=== PATIENT | female | born 1970 ===

== ENCOUNTER 2018-11-06 20:12 | Emergency (ER) | payer OTHER ==
[~2018-11-06 20:12] MED LIST: CETI10CA8 PO; HYDR-385 PO; IBUP800T37 PO; PER PO; TYLENOL PM PO
[2018-11-06] MEDS ORDERED: ESCI20TA38 PO (20:20)
--- NOTE | 2018-11-06 20:39 | ER Report ---
History and Physical Time Seen By MD: 20:37 Hx. of Stated Complaint: patient states that she has a "knot" starting from her sternum going along down her right breast; states that she has had the knot fot 6yr and off and on it bothers her and tonight it has been hurting her HPI/ROS CHIEF COMPLAINT: Pain in right chest area HISTORY OF PRESENT ILLNESS: This is a 47 year old female. She has pain in the right chest area, along the bottom of the ribs, extending to under the right breast and to her side. Has had on and off for years now. Has not seen a certain pattern to the pain. Has been evaluated in the past, told it was costochondritis. Has had breast implants in the past. Has no breast pain, skin changes or nipple discharge. No lymph nodes on the right side, but has a small area behind the left ear that feels like a lymph node. No fevers or chills. No shortness of breath.. Pain increases with movement and plapation of the chest wall. No shortness of breath, but the sharp pain sometimes takes her breath eliseo y. REVIEW OF SYSTEMS: Constitutional: No fever or chills. Eyes: No vision changes. ENT: Has had recent congestion, sore throat, runny nose. Cardiovascular: No heart palpitations. Respiratory: Mild cough. Gastrointestinal: No abdominal pain. No nausea or vomiting. Genitourinary: No dysuria or urinary probllems. Musculoskeletal: No other musculoskeletal pain other than some episodic shoulder pains. Skin: No rashes. Neurological: No numbness. Allergies: Coded Allergies: phenylpropanolamine (Verified Allergy, Intermediate, sunburn, 11/06/18) cefaclor (Verified Allergy, Mild, RASH, 11/06/18) Home Meds Active Scripts Hydrocodone Bit/Acetaminophen (HYDROCODON-ACETAMINOPHEN 5-325) 1 Each Tablet, 1 EACH PO Q4H PRN for PAIN, #8 TAB 0 Refills Prov:MOOK NOE MD 11/06/18 Prednisone (PREDNISONE) 20 Mg Tablet, 60 MG PO QDAY, #12 TAB 0 Refills Prov:MOOK NOE MD 11/06/18 Ibuprofen (IBUPROFEN) 800 Mg Tablet, 800 MG PO Q8H PRN for PAIN, #30 TAB 0 Refills Prov:ABIGAIL SANDOVAL MD 07/04/17 Reported Medications Escitalopram Oxalate (LEXAPRO) 20 Mg Tablet, 10 MG PO QDAY, TAB 11/06/18 [Tylenol Pm] No Conflict Check, 500 TAB PO HS, MG 06/28/17 Discontinued Reported Medications Hydrocodone Bit/Acetaminophen (HYDROCODON-ACETAMINOPHEN 5-325) 1 Each Tablet, 1 EACH PO Q4H PRN for PAIN, TAB 06/28/17 Cetirizine Hcl (ZYRTEC) 10 Mg Capsule, 10 MG PO PRN, CAPSULE 06/28/17 Discontinued Scripts Oxycodone/Acetaminophen (OXYCODONE/ACETAMINOPHEN 5MG/325 MG) 5 Mg/325 Mg Tab, 1- 2 TAB PO Q4H PRN for PAIN, #20 TAB 0 Refills Prov:ABIGAIL SANDOVAL MD 07/04/17 Reviewed Nurses Notes: Yes Hx Smoking: Yes (5 CIGARETTES A DAY 30+YEARS ) Smoking Status: Current: Every Day Smoker Hx Substance Use Disorder: No Constitutional Vital Sign - Last 24 Hours 11/06/18 11/06/18 11/06/18 11/06/18 20:17 20:27 20:30 20:42 Temp 98.9 Pulse 129 111 98 Resp 19 B/P (MAP) 143/109 132/91 (105) Pulse Ox 94 93 94 O2 Delivery Room Air 11/06/18 11/06/18 11/06/18 11/06/18 20:57 21:00 21:12 21:27 Pulse 93 87 87 B/P (MAP) 138/113 (121) Pulse Ox 93 95 95 11/06/18 11/06/18 11/06/18 11/06/18 21:30 21:42 21:57 22:16 Pulse 77 78 B/P (MAP) 137/96 (110) ???/??? (7582) Pulse Ox 94 93 11/06/18 11/06/18 11/06/18 11/06/18 22:17 22:30 22:32 22:47 Pulse 82 77 79 B/P (MAP) ???/??? (1983) Pulse Ox 96 95 93 11/06/18 11/06/18 11/06/18 23:00 23:02 23:17 Pulse 87 85 B/P (MAP) ???/??? (1665) Pulse Ox 95 93 Physical Exam General Appearance: The patient is alert. No acute distress. Eyes: Pupils are equal, round. No pallor, injection or icterus. ENT: Mucous membranes are moist. Normal oral mucosa. Posterior oropharynx is normal. Neck: Supple and non tender. Respiratory: Lungs are clear to auscultation. Cardiovascular: Regular rate and rhythm. No murmurs, gallops or rubs. Normal capillary refill. Gastrointestinal: Abdomen is soft and non tender. Nondistended. Normal active bowel sounds. Neurological: Alert and oriented x3. No focal neurologic deficits Skin: Warm and dry. No rashes. Breasts: Right breast is symmetric, no masses felt. No nipple discharge or changes. Lymph: Axillary lymph node evaluation without any lymphadenopathy present Musculoskeletal: Pain with palpation of the ribs, has a little prominence of the area. Full range of motion. No tenderness in palpation of the cervical, thoracic and lumbar spine. DIFFERENTIAL DIAGNOSIS: After history and physical exam, differential diagnosis was considered for right-sided rib pain, likely costochondritis, but will need to lock and rule out any other breast issues, infectious etiology, masses. Medical Decision Making Data Points Result Diagram: 11/06/18214611/06/182146 Laboratory Hematology Test 11/06/18 21:47 Red Blood Count 5.05 M/uL (4.17-5.56) Mean Corpuscular Volume 77.8 fL (80.0-96.0) Mean Corpuscular Hemoglobin 25.5 pg (26.0-33.0) Mean Corpuscular Hemoglobin Concent 32.8 g/dL (32.0-36.0) Red Cell Distribution Width 18.1 % (11.5-14.5) Mean Platelet Volume 7.6 fL (7.2-11.1) Neutrophils (%) (Auto) 58.0 % (39.4-72.5) Lymphocytes (%) (Auto) 28.9 % (17.6-49.6) Monocytes (%) (Auto) 6.8 % (4.1-12.4) Eosinophils (%) (Auto) 5.1 % (0.4-6.7) Basophils (%) (Auto) 1.2 % (0.3-1.4) Nucleated RBC Relative Count (auto) 0.1 /100WBC Neutrophils # (Auto) 5.9 K/uL (2.0-7.4) Lymphocytes # (Auto) 2.9 K/uL (1.3-3.6) Monocytes # (Auto) 0.7 K/uL (0.3-1.0) Eosinophils # (Auto) 0.5 K/uL (0.0-0.5) Basophils # (Auto) 0.1 K/uL (0.0-0.1) Nucleated RBC Absolute Count (auto) 0.01 K/uL Peripheral Blood Smear Yes Y/N Erythrocyte Sedimentation Rate 7 mm/HOUR (0-20) Sodium Level 140 mmol/L (137-145) Potassium Level 4.2 mmol/L (3.5-5.0) Chloride Level 114 mmol/L (98-107) Carbon Dioxide Level 21 mmol/L (22-31) Blood Urea Nitrogen 12 mg/dl (7-18) Creatinine 0.80 mg/dl (0.52-1.04) Glomerular Filtration Rate Calc > 60.0 Random Glucose 93 mg/dl (75-110) Calcium Level 9.0 mg/dl (8.4-10.2) Total Bilirubin 0.2 mg/dl (0.2-1.3) Aspartate Amino Transf (AST/SGOT) 16 U/L (0-35) Alanine Aminotransferase (ALT/SGPT) 23 U/L (0-56) Alkaline Phosphatase 61 U/L (0-126) C-Reactive Protein 0.5 mg/dl (<1.0) Total Protein 7.2 g/dl (6.3-8.2) Albumin 4.3 g/dl (3.5-5.0) Chemistry Test 11/06/18 21:47 White Blood Count 10.1 k/uL (4.5-11.0) Red Blood Count 5.05 M/uL (4.17-5.56) Hemoglobin 12.9 g/dL (12.0-16.0) Hematocrit 39.3 % (34.0-47.0) Mean Corpuscular Volume 77.8 fL (80.0-96.0) Mean Corpuscular Hemoglobin 25.5 pg (26.0-33.0) Mean Corpuscular Hemoglobin Concent 32.8 g/dL (32.0-36.0) Red Cell Distribution Width 18.1 % (11.5-14.5) Platelet Count 392 K/uL (150-450) Mean Platelet Volume 7.6 fL (7.2-11.1) Neutrophils (%) (Auto) 58.0 % (39.4-72.5) Lymphocytes (%) (Auto) 28.9 % (17.6-49.6) Monocytes (%) (Auto) 6.8 % (4.1-12.4) Eosinophils (%) (Auto) 5.1 % (0.4-6.7) Basophils (%) (Auto) 1.2 % (0.3-1.4) Nucleated RBC Relative Count (auto) 0.1 /100WBC Neutrophils # (Auto) 5.9 K/uL (2.0-7.4) Lymphocytes # (Auto) 2.9 K/uL (1.3-3.6) Monocytes # (Auto) 0.7 K/uL (0.3-1.0) Eosinophils # (Auto) 0.5 K/uL (0.0-0.5) Basophils # (Auto) 0.1 K/uL (0.0-0.1) Nucleated RBC Absolute Count (auto) 0.01 K/uL Peripheral Blood Smear Yes Y/N Erythrocyte Sedimentation Rate 7 mm/HOUR (0-20) Glomerular Filtration Rate Calc > 60.0 Calcium Level 9.0 mg/dl (8.4-10.2) Total Bilirubin 0.2 mg/dl (0.2-1.3) Aspartate Amino Transf (AST/SGOT) 16 U/L (0-35) Alanine Aminotransferase (ALT/SGPT) 23 U/L (0-56) Alkaline Phosphatase 61 U/L (0-126) C-Reactive Protein 0.5 mg/dl (<1.0) Total Protein 7.2 g/dl (6.3-8.2) Albumin 4.3 g/dl (3.5-5.0) EKG/Imaging Imaging CT of the chest, with contrast: Indication: Right-sided chest pain. Technique: Helical CT was performed through the chest following IV contrast enhancement with 75 cc of Isovue-370. Multiplanar reconstructions are reviewed. One of the following dose optimization techniques was utilized in the performance of this exam: Automated exposure control; adjustment of the mA and/or kV according to the patient's size; or use of an iterative reconstruction technique. Specific details can be referenced in the facility's radiology CT exam operational policy. Comparison: Plain radiographs of the chest dated 03/25/2015. Lung kelly: There are mild emphysematous changes in both lungs. There is no evidence of focal mass, nodules, consolidation, or volume loss. Pleural spaces: There is no evidence of effusion, pleural thickening, calcification, mass, or pneumothorax. Mediastinum: There is no evidence of mass, lymph node enlargement, fluid collection, or inflammatory changes. Heart and vascular structures: The heart size is normal. There are no signs of pericardial effusion or soft tissue abnormality. Skeletal structures: There are mild degenerative changes in the lower thoracic spine. The skeletal structures are otherwise unremarkable. No acute deformity is identified. Bilateral breast prostheses are unremarkable, as visualized. Upper abdomen: A few tiny cysts are present in the liver. Otherwise unremarkable. IMPRESSION: Mild emphysematous changes. No acute process is identified. Report Dictated By: Lester Alcantar MD at 11/06/2018 10:33 PM ED Course/Re-evaluation Clinical Indication for ER IV: Hydration, IV Access ED Course IV and labs, chest CT obtained. Negative work up. Suspect costochondritis, but recommended follow-up for further evaluation. Will try Prednisone burst and Lortab for acute pain now. Decision to Disposition Date: Nov 06, 2018 Decision to Disposition Time: 23:36 Depart Departure Latest Vital Signs Vital Signs Date Time Temp Pulse Resp B/P (MAP) Pulse Ox O2 Delivery O2 Flow Rate FiO2 11/06/18 23:17 85 93 11/06/18 23:00 ???/??? (1665) 11/06/18 20:17 98.9 19 Room Air Impression: Primary Impression: Costochondritis Condition: Improved Disposition: HOME OR SELF-CARE Referrals: LORE MERINO MD New Scripts Hydrocodone Bit/Acetaminophen (HYDROCODON-ACETAMINOPHEN 5-325) 1 Each Tablet 1 EACH PO Q4H PRN for PAIN, #8 TAB 0 Refills Prov: MOOK NOE MD 11/06/18 Prednisone (PREDNISONE) 20 Mg Tablet 60 MG PO QDAY, #12 TAB 0 Refills Prov: MOOK NOE MD 11/06/18 Patient Instructions: Costochondritis (ED) Additional Instructions: The pain you are having is likely recurring inflammation in the ribs, muscle and cartilage of the chest wall. We are going to have you take the steroid Prednisone 20mg tablets, 3 tablets once a day for 5 days. Take Lortab 5/325, one every 4 hours as needed for severe pain. Follow-up with primary care, or with a general surgeon who can re-evaluate your breast area. Referral to Dr. Merino. [facility] Nov 06, 2018 20:39
[2018-11-06] MEDS ORDERED: fentaNYL CITR 100 MCG/2 ML AMP IVP ONE (21:30)
[2018-11-06] MEDS ORDERED: IOPAMIDOL 76% 150 ML INFUS BTL 150 ML ONE (21:45)
[2018-11-06 21:58] LABS: PLATELET COUNT, AUTOMATED 392 K/uL (150-450)
--- NOTE | 2018-11-06 22:51 | RADIOLOGY IMAGING REPORT ---
FACILITY: [facility] PATIENT NAME: Angely Castellon : 1970 MR: [id number] V: [id number] EXAM DATE: ORDERING PHYSICIAN: MOOK NOE TECHNOLOGIST: Location: [facility] Patient: Angely Castellon : 1970 Visit/Account:[id number] Date of Sevice: 11/06/2018 CT of the chest, with contrast: Indication: Right-sided chest pain. Technique: Helical CT was performed through the chest following IV contrast enhancement with 75 cc of Isovue-370. Multiplanar reconstructions are reviewed. One of the following dose optimization techniques was utilized in the performance of this exam: Autom ated exposure control; adjustment of the mA and/or kV according to the patient's size; or use of an i terative reconstruction technique. Specific details can be referenced in the facility's radiology CT exam operational policy. Comparison: Plain radiographs of the chest dated 03/25/2015. Lung kelly: There are mild emphysematous changes in both lungs. There is no evidence of focal mass, nodules, consolidation, or volume loss. Pleural spaces: There is no evidence of effusion, pleural thickening, calcification, mass, or pneumot horax. Mediastinum: There is no evidence of mass, lymph node enlargement, fluid collection, or inflammatory changes. Heart and vascular structures: The heart size is normal. There are no signs of pericardial effusion o r soft tissue abnormality. Skeletal structures: There are mild degenerative changes in the lower thoracic spine. The skeletal st ructures are otherwise unremarkable. No acute deformity is identified. Bilateral breast prostheses ar e unremarkable, as visualized. Upper abdomen: A few tiny cysts are present in the liver. Otherwise unremarkable. IMPRESSION: Mild emphysematous changes. No acute process is identified. Report Dictated By: Lester Alcantar MD at 11/06/2018 10:33 PM Report E-Signed By: Lester Alcantar MD at 11/06/2018 10:47 PM [id number]
[2018-11-06] MEDS ORDERED: PRED20TA6 PO (23:37)
[2018-11-06] MEDS ORDERED: LOR5/325 PO (23:37)
[2018-11-06] MEDS ORDERED: predniSONE 20 MG TAB PO ONE (23:40)
[2018-11-06] MEDS ORDERED: ACET/HYDROC 5/325MG TH ER ONLY 2 TAB/BOTTLE PO ONE (23:40)
== END 2018-11-06 23:53 | disposition home or self-care (01) ==
LOC: ER 20:24
DX: M94.0 Chondrocostal junction syndrome [Tietze] (principal); F17.210 Nicotine dependence, cigarettes, uncomplicated
CPT/HCPCS: 71260; 85025; 85651; 86140; 96374; 99284; J3010; J7512; Q9967; 82040; 82247; 82310; 82374; 82435; 82565; 82947; 84075; 84132; 84155; 84295; 84450; 84460; 84520

== ENCOUNTER → 2019-04-29 | Outpatient (CLI) | payer OTHER ==
[~2019-04-29] MED LIST changes: +ESCI20TA38 PO; +LOR5/325 PO; +PRED20TA6 PO
== END ==
LOC: LAB 01:33
PROVIDERS: ATTEND Nurse Practitioner Family
DX: R19.7 Diarrhea, unspecified (principal)
CPT/HCPCS: 87045; 87177